=== PATIENT | male | born 1980 | race Caucasian/White ===

== ENCOUNTER 2022-03-06 13:08 | Emergency (ER) | payer OTHER ==
[~2022-03-06] VITALS: Ht 165.1 cm; Wt 83.5 kg
[2022-03-06 13:13] VITALS: BP 145/98
--- NOTE | 2022-03-06 13:46 | NUR ---
PT AMB TO ER BED 3 W/O ASST
--- NOTE | 2022-03-06 14:00 | NUR ---
41 y/o male bib self for head pain, states he was hit with piece of metal while working today. denies locc, syncope. pt states he is also c/o dizzy and nausea. skin is pink/warm/dry. a&o x4 with even and steady gait. lungs clear bl, heart rate even and regular. pt denies any fever, cp, sob, or cough at this time. pt states pain is 9/10 at this time. patient positioned for comfort. hob elevated. bed down. ermd made aware of pt. pmh: denies nka
[2022-03-06] MEDS ORDERED: ACETAMINOPHEN 325 MG TAB PO ONE (14:30)
--- NOTE | 2022-03-06 14:58 | NUR ---
Patient appears to be resting comfortably in bed. Vital Signs within normal limits. Respirations even and unlabored.
[2022-03-06] MEDS ORDERED: BACI1PAC6 TP (15:29)
[2022-03-06] MEDS ORDERED: IBUP-2213 PO (15:29)
[2022-03-06 15:45] VITALS: BP 132/75
--- NOTE | 2022-03-06 15:45 | NUR ---
Patient discharged with v/s stable. Written and verbal after care instructions given and explained. Patient alert, oriented and verbalized understanding of instructions. Ambulatory with steady gait. All questions addressed prior to discharge. ID band removed. Patient advised to follow up with PMD. Rx of BACITRACIN OINT given. Patient educated on indication of medication including possible reaction and side effects. Opportunity to ask questions provided and answered.
== END 2022-03-06 15:45 | disposition home or self-care (01) ==
LOC: MED 13:08
DX: S01.01XA Laceration without foreign body of scalp, initial encounter (principal); X58.XXXA Exposure to other specified factors, initial encounter; Y93.89 Activity, other specified; Y92.89 Other specified places as the place of occurrence of the external cause; Y99.8 Other external cause status
CPT/HCPCS: 12001; 70450; 99284